=== PATIENT | male | born 1985 | race Caucasian/White ===

== ENCOUNTER 2022-03-05 13:16 | Emergency (ER) | payer MEDICAID ==
[~2022-03-05] VITALS: Ht 177.8 cm; Wt 52.0 kg
[2022-03-05 14:20] VITALS: BP 128/81
== END 2022-03-05 18:57 | disposition left against medical advice (07) ==
LOC: ER 13:16
DX: Z53.21 Procedure and treatment not carried out due to patient leaving prior to being seen by health care provider (principal)

== ENCOUNTER 2025-01-30 22:31 | Inpatient (IN) | payer MEDICAID ==
[~2025-01-30] VITALS: Ht 177.8 cm; Wt 50.9 kg
[2025-01-30 23:30] LABS: BASOPHILS # (AUTO) 0.1 X10'3 (0-0.2); BASOPHILS % (AUTO) 0.4 % (0-1); EOSINOPHILS # (AUTO) 0.2 X10'3 (0-0.9); EOSINOPHILS % (AUTO) 1.5 % (0-6); HEMATOCRIT 43.2 % (42.0-52.0); HEMOGLOBIN 14.6 g/dl (14.0-17.9); LYMPHOCYTES # (AUTO) 2.9 X10'3 (1.1-4.8); LYMPHOCYTES % (AUTO) 21.9 % (21-51); MEAN CORPUSCULAR HEMOGLOBIN 32.6 PG (27.0-31.0); MEAN CORPUSCULAR HGB CONC 33.8 g/dL (33.0-36.5); MEAN CORPUSCULAR VOLUME 96.4 FL (78-98); MEAN PLATELET VOLUME 7.6 FL (7.4-10.4); MONOCYTES # (AUTO) 1.4 X10'3 (0-0.9); MONOCYTES % (AUTO) 10.6 % (2-12); NEUTROPHILS # (AUTO) 8.6 X10'3 (1.8-7.7); NEUTROPHILS % (AUTO) 65.6 % (42-75); PLATELET COUNT 200 X10'3 (140-440); RED BLOOD COUNT 4.48 X10'6 (4.70-6.10); RED CELL DISTRIBUTION WIDTH 13.6 % (11.5-14.5); WHITE BLOOD COUNT 13.1 X10'3 (4.5-11.0)
[2025-01-30 23:39] LABS: ALBUMIN 4.5 G/DL (3.4-5.0); ANION GAP 10 (8-16); BLOOD UREA NITROGEN 13 MG/DL (7-18); BUN/CREATININE RATIO 12.9 (10.0-20.0); CALCIUM 9.3 MG/DL (8.5-10.1); CHLORIDE 102 MMOL/L (99-107); CREATININE 1.01 MG/DL (0.60-1.10); GLUCOSE 126 MG/DL (70-104); POTASSIUM 3.9 MMOL/L (3.5-5.1); SODIUM 139 MMOL/L (135-145); THYROID STIMULATING HORMONE 2.03 ulU/ml (0.34-4.50); TOTAL CARBON DIOXIDE 27.5 MMOL/L (24-32); eCRCL 76 ML/MIN; eGFR 82 ML/MIN
[2025-01-30 23:42] LABS: ETHANOL < 10 MG/DL (<10)
--- NOTE | 2025-01-30 23:46 | Physician Documentation ---
History of Present Illness ~ Chief Complaint: Mental Health Eval Stated Complaint: EVAL Time Seen by MD: 23:42 HPI Patient presents to the emergency room brought in by mother, concerns for abby. He was recently diagnosed with abby. Has not slept in a few days. Things have escalated to the point where she feels he needs to be evaluated. Mother states he disappeared for a couple hours today when he went to go to the mail and came back soaking wet and covered in scratches in his arms and back and she feels that he may have fallen into some [place] bushes. Medication Reconciliation Allergies: Coded Allergies: No Known Allergies (Unverified , 01/10/13) Past Medical History Past Medical History: Chronic Pain Alcohol Use: None Drug Use: none Review of Systems ROS All review of systems negative except as per HPI Physical Exam Vital Signs: Temperature: 98.2, Source: Temporal, Heart Rate: 135, Respiratory Rate: 18, BP: 145/89, Pulse Oximetry: 99, Weight: 55.000 Oxygen Flow Rate: 0 Physical Exam General: Patient is awake, alert, agitated and not very cooperative and a bit combative Head: Normocephalic and atraumatic. Eyes: Conjunctival normal. EOMI. PERRL. ENT: Mucous membranes moist. Neck: Supple, trachea is midline. Chest: Clear to auscultation bilaterally without rales, rhonchi, or wheezes. There is no accessory muscle use or retractions. Cardiac: Tachycardic and regular without murmurs, gallops, or rubs. Skin: Superficial excoriations to bilateral arms and upper back. No sign of infection Progress Results/Orders Results/Orders Orders - ABHI ODOM MD Drug Screen, Urine (01/30/25 23:00) Med Rec (01/30/25 23:00) Close Observation Level (01/30/25 23:00) Covid19 Binax Poc Result Entry (01/30/25 23:00) Substance Use Navigator (01/30/25 23:00) Regular Diet (01/31/25 Breakfast) Urinalysis, Cult If Indicated (01/30/25 23:00) Completed Orders - ABHI ODOM MD Cbc/Diff (01/30/25 23:00) Ethanol (01/30/25 23:00) TSH (6/3/25 23:00) BMP (01/30/25 23:00) Midazolam 1 Mg/Ml 5ml Inj (Versed 1 Mg/M (01/30/25 23:45) Diphenhydramine Inj (Benadryl Inj.) (01/30/25 23:45) Haloperidol Lact. (Haldol) (01/30/25 23:45) Midazolam 5 Mg/Ml 2ml Inj (Versed 5 Mg/M (01/30/25 23:49) Medications Received in ER Medications (Trade) Dose Ordered Sig/Edil Route PRN Reason Start Time Stop Time Status Last Admin Dose Admin (Benadryl inj.) 50 mg ONCE ONCE IM 01/30/25 23:45 01/30/25 23:46 DC 01/31/25 00:11 50 MG (Haldol) 10 mg ONCE ONCE IM 01/30/25 23:45 01/30/25 23:49 DC 01/31/25 00:11 10 MG (Versed 5 MG/ML 2ML inj) 5 mg ONCE STAT IV 01/30/25 23:49 01/30/25 23:51 DC 01/31/25 00:11 5 MG Vital Signs 01/30/25 22:47 Temp 98.2 Pulse 135 Resp 18 B/P (MAP) 145/89 Pulse Ox 99 O2 Flow Rate 0 Laboratory Tests Test 01/30/25 23:08 White Blood Count 13.1 H Red Blood Count 4.48 L Hemoglobin 14.6 Hematocrit 43.2 Mean Corpuscular Volume 96.4 Mean Corpuscular Hemoglobin 32.6 H Mean Corpuscular Hemoglobin Concent 33.8 Red Cell Distribution Width 13.6 Platelet Count 200 Mean Platelet Volume 7.6 Neutrophils (%) (Auto) 65.6 Lymphocytes (%) (Auto) 21.9 Monocytes (%) (Auto) 10.6 Eosinophils (%) (Auto) 1.5 Basophils (%) (Auto) 0.4 Neutrophils # (Auto) 8.6 H Lymphocytes # (Auto) 2.9 Monocytes # (Auto) 1.4 H Eosinophils # (Auto) 0.2 Basophils # (Auto) 0.1 CBC Comment Sodium Level 139 Potassium Level 3.9 Chloride Level 102 Carbon Dioxide Level 27.5 Anion Gap 10 Blood Urea Nitrogen 13 Creatinine 1.01 Estimated GFR/1.73 m2 82 BUN/Creatinine Ratio 12.9 Glucose Level 126 H Calcium Level 9.3 Albumin 4.5 Thyroid Stimulating Hormone (TSH) 2.03 Chemistry Comments Ethyl Alcohol Level < 10 Medical Decision Making Findings Patient presents to the emergency room with significant agitation. Differentials include but are not limited to manic episode, explosive behavioral outburst, dehydration/acute kidney injury, metabolic encephalopathy therefore emergent labs ordered which were reassuring. Given patient's history do not feel he requires with CT scan. He is medically cleared for psychiatric e valuation. I do believe he is gravely disabled. Departure Disposition: 30 STILL A PATIENT Impression: Primary Impression: Abby Additional Impression: Mental disorder Condition: Guarded Referrals: NO PRIMARY CARE PROVIDER (PCP) Signature Scribe Signature: No scribe Attestation: The note accurately reflects work and decisions made by me.Abhi Odom MD 01/31/25 00:23 ABHI ODOM MD Jan 30, 2025 23:46
[2025-01-31] MEDS: haloperidol lactate 5mg/ml inj IM ONE ×2 (00:11→03:44)
[2025-01-31] MEDS: diphenhydrAMINE 50 mg/ml inj IM ONE ×2 (00:11→03:43)
[2025-01-31] MEDS: MIDAZolam 5mg/ml 2ml vial IV STA (00:11)
[2025-01-31] MEDS: MIDAZolam 1 MG/ML 5ML VIAL IM ONE (00:12)
[2025-01-31] MEDS: MIDAZolam 5mg/ml 2ml vial IV ONE (03:46)
[2025-01-31] MEDS: MIDAZolam 1mg/ml 10ml vial IM ONE (03:55)
[2025-01-31 07:01] LABS: BILIRUBIN,URINE NEGATIVE (Neg); CLARITY,URINE CLEAR (Clear); COLOR,URINE YELLOW (Yellow); GLUCOSE, URINE NEGATIVE (Neg); KETONES,URINE NEGATIVE (Neg); LEUKOCYTE ESTERASE ,URINE NEGATIVE (Neg); NITRITES, URINE NEGATIVE (Neg); OCCULT BLOOD,URINE NEGATIVE (Neg); PROTEIN,URINE NEGATIVE (Neg); UROBILINOGEN,URINE 0.2 E.U/dL (0.2-1.0)
[2025-01-31] MEDS: ziprasidone IM 20mg inj **IM only IM ONE (07:01)
[2025-01-31 07:04] LABS: UA COLLECTION TYPE URINAL
[2025-01-31 07:08] LABS: URINE AMPHETAMINE SCREEN NEGATIVE (Neg); URINE BARBITUATE SCREEN NEGATIVE (Neg); URINE BENZODIAZEPINES SCREEN POSITIVE (Neg); URINE CANNABINOID SCREEN POSITIVE (Neg); URINE COCAINE SCREEN NEGATIVE (Neg); URINE METHADONE SCREEN NEGATIVE (Neg); URINE OPIATE SCREEN NEGATIVE (Neg); URINE PHENCYCLIDINE SCREEN NEGATIVE (Neg)
[2025-01-31] MEDS: LORazepam 1 MG tablet PO ONE (10:50)
[2025-01-31 21:37] VITALS: BP 129/78; PULSE 111; RESP 18; TEMP 96.9; O2SAT 98
[2025-01-31 21:50] VITALS: RESP 18; O2SAT 98
[2025-01-31] MEDS ORDERED: acetaminophen 325mg tablet PO PRN (21:55)
[2025-01-31] MEDS ORDERED: diphenhydrAMINE 25mg capsule PO PRN (21:55)
[2025-01-31] MEDS ORDERED: chlorproMAZINE 25mg tablet PO PRN (21:55)
[2025-01-31] MEDS ORDERED: loperamide 2mg capsule PO PRN (21:55)
[2025-01-31] MEDS: traZODone 50mg tablet PO PRN (23:06)
[2025-01-31] MEDS: hydrOXYzine 25 MG tablet PO PRN (23:06)
[2025-02-01 07:45] VITALS: BP 119/59; PULSE 81; RESP 16; TEMP 98.4; O2SAT 100
[2025-02-01] MEDS: nicotine 21mg patch - 24 hr TD PRN (08:42)
[2025-02-01] MEDS: NICOTINE POLACRILEX 2 MG LOZENGE BC PRN (08:43)
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
[2025-02-01 19:00] VITALS: RESP 18; O2SAT 99
[2025-02-01] MEDS ORDERED: mag hydrox/Alum hydrox/simeth 30ml oral suspension PO PRN (19:40)
[2025-02-01] MEDS: magnesium hydroxide 30ml (MOM) UD suspension PO PRN (19:48)
[2025-02-01 20:00] VITALS: BP 120/76; PULSE 89; RESP 18; TEMP 98.3; O2SAT 99
[2025-02-01] MEDS: Melatonin 3mg tablet PO SCH (20:56)
[2025-02-01] MEDS: risperiDONE 0.5mg tablet PO ONE (20:56)
[2025-02-01] MEDS: lithium carbonate 150mg capsule PO SCH (20:57)
[2025-02-02 07:21] VITALS: BP 121/87; PULSE 91; RESP 16; TEMP 97.8; O2SAT 99
--- NOTE | 2025-02-02 12:39 | PROGRESS NOTE ---
Progress Note Dictate Providers to CC ~ Central Line/PICC still needed: N\\A Antibiotic Ordered?: No MRSA Education MRSA Education Provided to pt: No Objective Vitals Vital Signs Date Time Temp Pulse Resp B/P (MAP) Pulse Ox O2 Delivery O2 Flow Rate FiO2 02/02/25 07:30 Room Air 0.0 02/02/25 07:21 97.8 91 16 121/87 (98) 99 Lab Results: 01/30/25 2308 01/30/25 2308 Counseling Services Smoking & Tobacco Cessation: > 10 Minutes Problem\\Assessment\\Plan Problems/Diagnosis: (1) Bipolar disorder with psychotic features Psychiatrist's Progress Note Date of Service: Feb 02, 2025 Notes CHART REVIEW Earl is a 40-year-old male placed on a 1799 by [facility] ED for gravely disabled after he was assisted to the ED by his mother, Milady. Earl was observed with disorganized thoughts, appear manic, highly agitated and when he presented to the ED and required sedation medication. Mother reports this is out of his character. Earl currently presents as sedated, he is unable to report a viable plan for food, clothing or senior care. Per mother, Milady, Earl has not been eating or sleeping in the last few days exhibiting disorganized thoughts, paranoia and talking about his brother who is and wanting to be with his brother. ASSESSMENT The patient was interviewed in observation room. The patient was actively sitting in the hallway. The patient endorses "I feel so much better then I did the morning I came in." "I was too embarrasses to see my therapist and ask for help." "I think I mad the right the decision to have her drive me to the hospital because I wasn't feeling safe." "My mom to visit me today and brought me a sweater, she is pretty awesome." Denies SI. Denies HI. Denies AVH. The patient endorses sleep and food intake. The patient is stable no acute distress noted. The patient presents as calm, cooperative, and engaged during session. Report patient is medication compliant. Per staff report no abnormal behaviors. Will continue daily assessment and adjusting treatment as needed. Closely monitor behavior and response to medication during hospitalization. Results Of any Diagn. Testing REVIEW OF LABS WBC 13.1 RBC 4.48 HEMOGLOBIN 14.6 HEMATOCRIT 43.2 PLATELETS 200 SODIUM 139 POTASSIUM 3.9 CHLORIDE 102 ANION GAP 10 BUN 13 CREATININE 1.01 GLUCOSE 126 CALCIUM 9.3 ALBUMIN 4.5 TSH 2.03 COVID NEGATIVE URINALYSIS NEGATIVE URINE DRUG SCREEN POSITIVE FOR CANNABIS Appearnace: Other ( TALL THIN MALE. FACIAL HAIR. WE WILL BROWN SHORT HAIR CUT. WEARING STREET CLOTHING) Speech: Other (CIRCUMSTANTIAL) Eye Contact: Other (INTERMITTENT) Motor Activity: Normal Affect: Full Orientation Impairment: None Memory Impairment: None Attention: Normal Hallucinations: None Other: None Suicidality: None Homicidality: None Delusions: None Behavior: Cooperative Insight: Fair, Poor Judgment: Poor Treatment RISPERIDONE 1MG PO QHS LITHIUM 600 MG P.O. Q.H.S. MELATONIN 9MG P.O. Q.H.S. Monitoring by Staff, Milieu, Group, and Individual counseling as needed -- According to the [place] Suicide Assessment the above named patient is on Q15 MINUTE CHECKS. [id number]- The patient does not have a good safety plan for discharge at this time. We are still titrating medications to an effective dose while maintaining a therapeutic environment to prevent decompensation and readmission. Total time spent 50 minutes REVIEW OF Clinical notes [X ] RN notes [X] PCT documentation [X] SW notes Labs [ X] Medications [X] Care trends/care activity [X] Vitals [X] DISCUSSION WITH zinc plate cutter [X] Staff SW [X] Treatment Team [X] Discharge UNSURE AT THIS TIME. DISCHARGE HOMELESS ONCE STABLE. CODING VISIT-PSYCHIATRY Date of Service: Feb 02, 2025 Billing Provider: KELVIN WESLEY APRN Psych Common Visit Codes: [id number] INP/OBS CARE(Mod) KELVIN WESLEY APRN Feb 02, 2025 12:39
[2025-02-02 19:00] VITALS: RESP 20; O2SAT 100
[2025-02-02] MEDS: acetaminophen 325mg tablet PO PRN (19:40)
[2025-02-02 20:00] VITALS: BP 124/76; PULSE 80; RESP 20; TEMP 98; O2SAT 100
[2025-02-03 07:30] VITALS: BP 123/75; PULSE 76; RESP 16; TEMP 97.5; O2SAT 99
--- NOTE | 2025-02-03 14:31 | PROGRESS NOTE ---
Progress Note Dictate Providers to CC ~ Central Line/PICC still needed: N\\A Antibiotic Ordered?: No MRSA Education MRSA Education Provided to pt: No Objective Vitals Vital Signs Date Time Temp Pulse Resp B/P (MAP) Pulse Ox O2 Delivery O2 Flow Rate FiO2 02/03/25 07:30 97.5 76 16 123/75 (91) 99 Room Air 0.0 Lab Results: 01/30/25 2308 01/30/25 2308 Counseling Services Smoking & Tobacco Cessation: > 10 Minutes (PIPE) Problem\\Assessment\\Plan Problems/Diagnosis: (1) Bipolar disorder with psychotic features Psychiatrist's Progress Note Date of Service: Feb 03, 2025 Notes CHART REVIEW Earl is a 40-year-old male placed on a 1799 by [facility] ED for gravely disabled after he was assisted to the ED by his mother, Milady. Earl was observed with disorganized thoughts, appear manic, highly agitated and when he presented to the ED and required sedation medication. Mother reports this is out of his character. Earl currently presents as sedated, he is unable to report a viable plan for food, clothing or long term. Per mother, Milady, Earl has not been eating or sleeping in the last few days exhibiting disorganized thoughts, paranoia and talking about his brother who is and wanting to be with his brother. ASSESSMENT The patient was interviewed in observation room. The patient was actively sitting in rec room. The patient endorses "Earl is good, he hanging in." "My mom came to visit and brought me some jeans and a sweatshirt." "She is anxious to get me home." "I feel total leveled." Denies SI. Denies HI. Denies AVH. The patient endorses sleep and food intake. The patient is stable no acute distress noted. The patient presents as calm, cooperative, and engaged during session. Will continue daily assessment and adjusting treatment as needed. Closely monitor behavior and response to medication during hospitalization. Results Of any Diagn. Testing REVIEW OF LABS WBC 13.1 RBC 4.48 HEMOGLOBIN 14.6 HEMATOCRIT 43.2 PLATELETS 200 SODIUM 139 POTASSIUM 3.9 CHLORIDE 102 ANION GAP 10 BUN 13 CREATININE 1.01 GLUCOSE 126 CALCIUM 9.3 ALBUMIN 4.5 TSH 2.03 COVID NEGATIVE URINALYSIS NEGATIVE URINE DRUG SCREEN POSITIVE FOR CANNABIS Appearnace: Other ( TALL THIN MALE. FACIAL HAIR. WE WILL BROWN SHORT HAIR CUT. WEARING STREET CLOTHING) Speech: Other (CIRCUMSTANTIAL) Eye Contact: Other (INTERMITTENT) Motor Activity: Normal Affect: Full Orientation Impairment: None Memory Impairment: None Attention: Normal Hallucinations: None Other: None Suicidality: None Homicidality: None Delusions: None Behavior: Cooperative Insight: Fair Judgment: Fair, Poor Treatment RISPERIDONE 1MG PO QHS LITHIUM 600 MG P.O. Q.H.S. MELATONIN 9MG P.O. Q.H.S. Monitoring by Staff, Milieu, Group, and Individual counseling as needed -- According to the [place] Suicide Assessment the above named patient is on Q15 MINUTE CHECKS. VOLUNTARY Total time spent 35 minutes REVIEW OF Clinical notes [X ] RN notes [X] PCT documentation [X] SW notes Labs [ X] Medications [X] Care trends/care activity [X] Vitals [X] DISCUSSION WITH clinic nurse [X] Staff SW [X] Treatment Team [X] Discharge UNSURE AT THIS TIME. DISCHARGE HOMELESS ONCE STABLE. CODING VISIT-PSYCHIATRY Date of Service: Feb 03, 2025 Billing Provider: KELVIN WESLEY APRN Psych Common Visit Codes: [id number] INP/OBS CARE(Mod) KELVIN WESLEY APRN Feb 03, 2025 14:31
--- NOTE | 2025-02-03 19:49 | PROGRESS NOTE- Residence ---
Progress Note - Resident Providers to CC Resident Creating Document: LAWANDA LOPEZ RES ~ Antibiotic Timeout Antibiotic Ordered?: No Subjective Patient was seen at the bedside in [facility]. He do have concern for weight lost, wanted to consult with dietitian for better body building diet plan. He does not have any special medical complaint at the moment. Objective Vital Signs Date Time Temp Pulse Resp B/P (MAP) Pulse Ox O2 Delivery O2 Flow Rate FiO2 02/03/25 18:49 Room Air 0.0 02/03/25 07:30 97.5 76 16 123/75 (91) 99 Result Diagram: 01/30/25230701/30/252307 Plan Plan A 40 years old male who has been placed on a 1799 hold by [facility] ED for being gravely disabled. He was assisted to the ER by his mother as per the records. Patient does not want to talk about what brought him here. He was admitted for his manic and agitation with disorganized thoughts necessitated for sedation and gravely disable to manage himself. # bipolar disorder with psychosis / possible Schizoaffective -please continue with the management plan as per psychiatric team Disposition: Hospitalist team will follow the patient during hospitalization, you are welcome to questions and medical consultation, appreciate for letting us involved in patient's care. Resident MD attestation: Patient was seen, examined and discussed with attending MD, Dr. Blayne LOPEZ MD Internal Medicine Resident, PGY2 [facility] Date of Service: Feb 03, 2025 Billing Provider: JUAN GARCIA MD, TIN, RES Feb 03, 2025 19:49
[2025-02-03 20:00] VITALS: BP 117/75; PULSE 91; RESP 18; TEMP 97.1; O2SAT 99
[2025-02-04 07:00] VITALS: RESP 16; O2SAT 98
[2025-02-04] MEDS: lactose-reduced food (Ensure High Protein) 237ml bottle PO SCH (07:58)
[2025-02-04] MEDS: JUVEN Smoothie Arginine/Glut./Ca2+Bmb (Juven 19.3pkt) 240ml cup PO SCH (07:58)
[2025-02-04 08:02] LABS: CHOL/HDL RATIO 2.2 (0.00-4.99); CHOLESTEROL 97 MG/DL (0-200); HDL CHOLESTEROL 44 MG/DL (35-60); LDL CHOLESTEROL 45 MG/DL (50-100); TRIGLYCERIDES 49 MG/DL (20-135)
[2025-02-04 08:04] VITALS: BP 114/86; PULSE 72; RESP 16; TEMP 97.7; O2SAT 98
--- NOTE | 2025-02-04 12:36 | PROGRESS NOTE ---
Progress Note Dictate Providers to CC ~ Central Line/PICC still needed: N\\A Antibiotic Ordered?: No MRSA Education MRSA Education Provided to pt: No Objective Vitals Vital Signs Date Time Temp Pulse Resp B/P (MAP) Pulse Ox O2 Delivery O2 Flow Rate FiO2 02/04/25 08:04 97.7 72 16 114/86 (95) 98 Room Air 0.0 Problem\\Assessment\\Plan Problems/Diagnosis: (1) Bipolar disorder with psychotic features Psychiatrist's Progress Note Date of Service: Feb 04, 2025 Notes CHART REVIEW Earl is a 40-year-old male placed on a 1799 by [facility] ED for gravely disabled after he was assisted to the ED by his mother, Milady. Earl was observed with disorganized thoughts, appear manic, highly agitated and when he presented to the ED and required sedation medication. Mother reports this is out of his character. Earl currently presents as sedated, he is unable to report a viable plan for food, clothing or skilled nursing. Per mother, Milady, Earl has not been eating or sleeping in the last few days exhibiting disorganized thoughts, paranoia and talking about his brother who is and wanting to be with his brother. ASSESSMENT The patient was interviewed in observation room. The patient was actively sitting in rec room. The patient endorses "I am doing better." "the meds are really working." The patient endorses no worsening mental health symptoms. Denies SI. Denies HI. Denies AVH. The patient endorses sleep and food intake. The patient is stable no acute distress noted. The patient presents as calm, cooperative, and engaged during session. Will continue daily assessment and adjusting treatment as needed. Closely monitor behavior and response to medication during hospitalization. Results Of any Diagn. Testing REVIEW OF LABS WBC 13.1 RBC 4.48 HEMOGLOBIN 14.6 HEMATOCRIT 43.2 PLATELETS 200 SODIUM 139 POTASSIUM 3.9 CHLORIDE 102 ANION GAP 10 BUN 13 CREATININE 1.01 GLUCOSE 126 CALCIUM 9.3 ALBUMIN 4.5 TSH 2.03 COVID NEGATIVE URINALYSIS NEGATIVE URINE DRUG SCREEN POSITIVE FOR CANNABIS Appearnace: Other (TALL THIN MALE. FACIAL HAIR. WE WILL BROWN SHORT HAIR CUT. WEARING STREET CLOTHING) Speech: Other (CIRCUMSTANTIAL) Eye Contact: Normal Motor Activity: Normal Affect: Full Mood: Euthymic Orientation Impairment: None Memory Impairment: None Attention: Normal Hallucinations: None Other: None Suicidality: None Homicidality: None Delusions: None Behavior: Cooperative Insight: Fair Judgment: Fair Treatment RISPERIDONE 1MG PO QHS LITHIUM 600 MG P.O. Q.H.S. MELATONIN 9MG P.O. Q.H.S. Monitoring by Staff, Milieu, Group, and Individual counseling as needed -- According to the [place] Suicide Assessment the above named patient is on Q15 MINUTE CHECKS. VOLUNTARY Total time spent 20 minutes REVIEW OF Clinical notes [X ] RN notes [X] PCT documentation [X] SW notes Labs [ X] Medications [X] Care trends/care activity [X] Vitals [X] DISCUSSION WITH lay out helper [X] Staff SW [X] Treatment Team [X] Discharge UNSURE AT THIS TIME. DISCHARGE HOMELESS ONCE STABLE. CODING VISIT-PSYCHIATRY Date of Service: Feb 04, 2025 Billing Provider: KELVIN WESLEY APRN Psych Common Visit Codes: [id number] INP/OBS CARE(Low) KELVIN WESLEY APRN Feb 04, 2025 12:36
[2025-02-04 19:00] VITALS: RESP 12; O2SAT 99
[2025-02-04 20:00] VITALS: BP 120/86; PULSE 80; RESP 12; TEMP 97.7; O2SAT 99
[2025-02-05 07:00] VITALS: RESP 16; O2SAT 98
[2025-02-05 08:00] VITALS: BP 112/77; PULSE 65; RESP 16; TEMP 97.7; O2SAT 98
--- NOTE | 2025-02-05 14:33 | PROGRESS NOTE ---
Progress Note Dictate Providers to CC ~ Central Line/PICC still needed: N\\A Antibiotic Ordered?: No MRSA Education MRSA Education Provided to pt: No Objective Vitals Vital Signs Date Time Temp Pulse Resp B/P (MAP) Pulse Ox O2 Delivery O2 Flow Rate FiO2 02/04/25 20:00 97.7 80 12 120/86 (97) 99 Room Air 02/04/25 08:04 0.0 Problem\\Assessment\\Plan Problems/Diagnosis: (1) Bipolar disorder with psychotic features Psychiatrist's Progress Note Date of Service: Feb 05, 2025 Notes CHART REVIEW Earl is a 40-year-old male placed on a 1799 by [facility] ED for gravely disabled after he was assisted to the ED by his mother, Milady. Earl was observed with disorganized thoughts, appear manic, highly agitated and when he presented to the ED and required sedation medication. Mother reports this is out of his character. Earl currently presents as sedated, he is unable to report a viable plan for food, clothing or mcc. Per mother, MiladyEarl has not been eating or sleeping in the last few days exhibiting disorganized thoughts, paranoia and talking about his brother who is and wanting to be with his brother. ASSESSMENT The patient was interviewed in observation room. The patient was actively sitting in rec room. The patient endorses "I am doing really good." The patient endorses no worsening mental health symptoms. Denies SI. Denies HI. Denies AVH. The patient endorses sleep and food intake. The patient is stable no acute distress noted. The patient presents as calm, cooperative, and engaged during session. Per staff report the patient has been medication compliant. Per staff report no abnormal behaviors. The patient has shown significant improvement since admission. Will continue daily assessment and adjusting treatment as needed. Closely monitor behavior and response to medication during hospitalization. Collateral received from Milady, patient's mother with patients consent. Milady Earl and myself had an extensive conversation about Earl being discharged tomorrow. Milady and Earl were able to come up with a safety plan for a safe discharge home. Results Of any Diagn. Testing REVIEW OF LABS WBC 13.1 RBC 4.48 HEMOGLOBIN 14.6 HEMATOCRIT 43.2 PLATELETS 200 SODIUM 139 POTASSIUM 3.9 CHLORIDE 102 ANION GAP 10 BUN 13 CREATININE 1.01 GLUCOSE 126 CALCIUM 9.3 ALBUMIN 4.5 TSH 2.03 COVID NEGATIVE URINALYSIS NEGATIVE URINE DRUG SCREEN POSITIVE FOR CANNABIS Appearnace: Other (TALL THIN MALE. FACIAL HAIR. WE WILL BROWN SHORT HAIR CUT. WEARING STREET CLOTHING) Speech: Other (CIRCUMSTANTIAL) Eye Contact: Normal Motor Activity: Normal Affect: Full Mood: Euthymic Orientation Impairment: None Memory Impairment: None Attention: Normal Hallucinations: None Other: None Suicidality: None Homicidality: None Delusions: None Behavior: Cooperative Insight: Fair Judgment: Fair Treatment RISPERIDONE 1MG PO QHS LITHIUM 600 MG P.O. Q.H.S. MELATONIN 9MG P.O. Q.H.S. Monitoring by Staff, Milieu, Group, and Individual counseling as needed -- According to the [place] Suicide Assessment the above named patient is on Q15 MINUTE CHECKS. VOLUNTARY Total time spent 45 minutes REVIEW OF Clinical notes [X ] RN notes [X] PCT documentation [X] SW notes Labs [ X] Medications [X] Care trends/care activity [X] Vitals [X] DISCUSSION WITH ballast cleaning operator [X] Staff SW [X] Treatment Team [X] Discharge UNSURE AT THIS TIME. DISCHARGE HOMELESS ONCE STABLE. CODING VISIT-PSYCHIATRY Date of Service: Feb 05, 2025 Billing Provider: KELVIN WESLEY APRN Psych Common Visit Codes: [id number] INP/OBS CARE(Low) KELVIN WESLEY APRN Feb 05, 2025 14:33
[2025-02-05 19:00] VITALS: RESP 16; O2SAT 98
--- NOTE | 2025-02-05 19:44 | PROGRESS NOTE ---
Daily Progress Note Providers to CC ~ Antibiotic Timeout Antibiotic Ordered?: No Subjective This is the hospitalist progress note on patients hospitalized at [facility]. Per nursing staff the patient is actively psychotic and when I went to examine the patient the patient is responding to internal stimuli however he did answer my question by I am good and I asked him if I could examine him he informed me know I am good and refused the physical exam. Objective Vital Signs Date Time Temp Pulse Resp B/P (MAP) Pulse Ox O2 Delivery O2 Flow Rate FiO2 02/05/25 08:00 97.7 65 16 112/77 (89) 98 Room Air 02/05/25 07:00 0.0 Gen no acute physical distress however the patient is binding to internal stimuli and appears disturbed by this. Respiratory no dyspnea or respiratory distress appreciated Neuro No twitches or tremors appreciated Problem\Assessment\Plan Problems/Diagnosis: (1) Bipolar disorder with psychotic features # bipolar disorder with psychosis Followed by Psychiatry Hospitalist team will continue to follow the patient while hospitalized at [facility] for behavioral health Date of Service: Feb 05, 2025 Billing Provider: NAA RHOADES DO Common Visit Codes: [id number] INP/OBS CARE(LOW) ANA RHOADES DO Feb 05, 2025 19:44
[2025-02-05 20:00] VITALS: BP 124/68; PULSE 85; RESP 16; TEMP 98; O2SAT 98
[2025-02-06 07:00] VITALS: RESP 16; O2SAT 98
[2025-02-06 08:00] VITALS: BP 115/75; PULSE 68; RESP 16; TEMP 97.9; O2SAT 98
[2025-02-06] MEDS ORDERED: LITH150C8 PO (12:54)
[2025-02-06] MEDS ORDERED: RISP1TAB69 PO (12:59)
--- NOTE | 2025-02-06 13:05 | DISCHARGE SUMMARY ---
Discharge Summary Providers to CC ~ Discharge Summary Admission Diagnosis: BIPOLAR DISORDER WITH PSYCHOTIC FEATURES Hospital Course DATE OF ADMISSION: DATE OF DISCHARGE: Discharge Diagnosis\\Comment: BIPOLAR DISORDER WITH PSYCHOTIC FEATURE Operations\\Procedures: NONE Consultants: MEDICAL TEAM Complications: NONE Condition on DC: Stable 2 or more antipsychotic used: No 2/more antipsychotic addressed: No Does Patient smoke: Yes Smoking education given.: Yes New Medications: [place] Carbonate (LITHIUM CARBONATE capsule) 150 Mg Capsule 600 MG PO TID@0830,1230,1730 for 30 Days, #30 CAP Risperidone (Risperidone) 1 Mg Tab.rapdis 1 TAB PO HS for 30 Days, #30 TAB 0 Refills Discharge Summary: CHART REVIEW Earl is a 40-year-old male placed on a 1799 by [facility] ED for gravely disabled after he was assisted to the ED by his mother, Milady. Earl was observed with disorganized thoughts, appear manic, highly agitated and when he presented to the ED and required sedation medication. Mother reports this is out of his character. Earl currently presents as sedated, he is unable to report a viable plan for food, clothing or [place] [facility]. Per mother, Milday, Earl has not been eating or sleeping in the last few days exhibiting disorganized thoughts, paranoia and talking about his brother who is and wanting to be with his brother. Patient actively seen and examined on day of discharge 02/06/2025, by myself, LAYLA Cm. The patient is interviewed in observation room. The patient endorses "Good." Denies SI. Denies HI. Denies AVH. Earl was able to formulate a safety plan which includes going to the emergency room if symptoms return or worsen. Call [phone] or [phone] for immediate assistance if necessary. During his hospital stay, Earl receive multidisciplinary treatment he adhered to his medication regimen and has been pleasant and cooperative. He denies any suicidal ideation (SI), homicidal ideation (HI), auditory/visual hallucination (HI). Staff has reported no behavioral issues, and the patient has been sleeping well, adequate food intake, with no mood or behavioral changes noted. The decision to discharge Earl was made in consensus with the treatment team, including the social work administrator, pulling unit operator, and charge account clerk on duty. The patient was E-scribed a 30 day supply of mediations to preferred pharmacy. MENTAL STATUS EXAM APPEARANCE: APPROPRIATELY. DRESSED IN STREET CLOTHING. SPEECH: CIRCUMSTANCE EYE CONTACT: NORMAL AFFECT: CONGRUENT WITH MOOD MOOD: "GOOD" ORIENTATION IMPAIRMENT: NONE MEMORY IMPAIRMENT: NONE ATTENTION: NORMAL HALLUCINATIONS: NONE SUICIDALITY: NONE HOMICIDALITY: NONE DELUSIONS: NONE BEHAVIOR: COOPERATIVE, PLEASANT JUDGMENT: FAIR INSIGHT: FAIR Continue Current Inpatient Psychotropic Regimen @ home Follow-Up with Psychiatric Provider Safety Plan Discussed DISCHARGE CONDITION: His readiness for discharge is supported by his stable mental status, adherence to treatment, and proactive approach to managing his mental health. Denies SI. Denies HI. Denies A/V/H. The patient has been informed to continue follow-up care to ensure ongoing support and monitoring. Patient discharged to home. *Problems/Diagnosis: (1) Bipolar disorder with psychotic features Total Time Spent on D/C: > 30 Minutes Counseling Services Smoking & Tobacco Cessation: > 10 Minutes CODING VISIT-PSYCHIATRY Date of Service: Feb 06, 2025 Billing Provider: KELVIN WESLEY APRN Psych Common Visit Codes: [id number]-OSB/OBS DISCH DAY >30min KELVIN WESLEY APRN Feb 06, 2025 13:00
[2025-02-06] MEDS ORDERED: risperiDONE 0.5mg tablet PO SCH (21:00)
== END 2025-02-06 13:12 | disposition home or self-care (01) | DRG 753 ==
LOC: ER 22:31 → UNDOADMIN 01-31 17:00 → ADULT MH 01-31 17:00
PROVIDERS: ADMIT Psychiatry & Neurology Psychiatry; ATTEND Psychiatry & Neurology Psychiatry
PROC: GZ51ZZZ Individual Psychotherapy, Behavioral (ICD-10-PCS; principal; 2025-02-01)
PROC: GZHZZZZ Group Psychotherapy (ICD-10-PCS; 2025-02-01)
DX: F31.2 Bipolar disorder, current episode manic severe with psychotic features (principal); Z20.822 Contact with and (suspected) exposure to COVID-19; Z59.00 Homelessness unspecified; Z90.81 Acquired absence of spleen
CPT/HCPCS: 36415; 80048; 80061; 80178; 80305; 80320; 81003; 84443; 85025; 87081; 87811; 99285; A6250; J1200; J1630; J2250; J3486; Q0177